=== PATIENT | male | born 1940 | race Caucasian/White ===

== ENCOUNTER → 2021-02-08 09:42 | Outpatient (BNVA) | payer MEDICARE, SELFPAY | PROVIDERS: PCP Family Medicine Adult Medicine; Visit Provider Urology | DX: N18.31 Chronic kidney disease, stage 3a (principal); C61 Malignant neoplasm of prostate | CPT/HCPCS: 81003; 84153; 84403 ==

== ENCOUNTER → 2021-03-21 14:08 | Outpatient (BNVA) | payer MEDICARE, SELFPAY | PROVIDERS: PCP Family Medicine Adult Medicine; Visit Provider Family Medicine Adult Medicine | DX: I10 Essential (primary) hypertension (principal); N18.31 Chronic kidney disease, stage 3a; E78.2 Mixed hyperlipidemia; E03.8 Other specified hypothyroidism | CPT/HCPCS: 80053; 80061; 82043; 84443; 85025 ==

== ENCOUNTER 2021-04-27 13:53 | Outpatient (CLI) | payer MEDICARE, SELFPAY ==
--- NOTE | 2021-04-27 14:15 | USCV_ITS ---
Maryan Teodoro Age: 80 Gender: M : 1940 Exam Date: 04/27/2021 14:29 Ordering Phys: Noe Nicole MD ([email or web address]) Technologist: Exam Location: [facility] [place]ication: dyspnea BP: 148 / 50 HR: 48 Rhythm: Sinus Technical Quality: Adequate MEASUREMENTS (Male / Female) Normal Values 2D ECHO LV Diastolic Diameter PLAX 4.8 cm 4.2 - 5.9 / 3.9 - 5.3 cm LV Systolic Diameter PLAX 3.0 cm IVS Diastolic Thickness 1.2 cm 0.6 - 1.0 / 0.6 - 0.9 cm IVS Systolic Thickness 1.4 cm LVPW Diastolic Thickness 1.1 cm 0.6 - 1.0 / 0.6 - 0.9 cm LVPW Systolic Thickness 1.8 cm LVOT Diameter 2.1 cm LV Ejection Fraction 2D Teich 68.3 % LV Ejection Fraction MOD 2C 56.6 % LV Ejection Fraction 2C AL 57.5 % LA Diameter 3.7 cm Aorta at Sinotubular Diameter 2.3 cm M-MODE Aortic Annulus Diameter 2.3 cm LA Ao Ratio MM 1.6 MV E Point Septal Separation 0.4 cm DOPPLER AV Peak Velocity 163.0 cm/s LVOT Peak Velocity 108.0 cm/s AV Area Cont Eq vti 2.2 cm squared AV Area Cont Eq pk 2.3 cm squared MV Area PHT 5.0 cm squared Mitral E to A Ratio 1.2 MV E' Velocity 60.0 cm/s Mitral E to MV E' Ratio 6.1 Mitral E to LV E' Lateral Ratio 5.2 Mitral E to LV E' Septal Ratio 7.6 TR Peak Velocity 268.0 cm/s TR Peak Gradient 28.7 mmHg TV Peak E Velocity 101.0 cm/s Right Atrial Pressure 3.0 mmHg Pulmonary Artery Systolic Pressu 31.7 mmHg PV Peak Velocity 117.0 cm/s RV Acceleration Time 0.1 s RV Ejection Time 0.4 s RV AcT/ET 0.2 FINDINGS Left Ventricle Normal left ventricular size and systolic function, EF 55 %. Mild left ventricular hypertrophy. No regional wall motion abnormalities. Right Ventricle The right ventricle is normal in size and function. Right Atrium The right atrium is normal in size. Left Atrium The left atrium is normal in size. Mitral Valve Thickened mitral valve. Moderate mitral valve regurgitation. Aortic Valve No gross abnormalities noted Tricuspid Valve Trace to mild tricuspid valve regurgitation. Pulmonic Valve No gross abnormalities noted Pericardium Normal pericardium without effusion. Aorta Normal ascending aorta dimension. CONCLUSIONS Normal left ventricular size and systolic function, EF 55 %. Mild left ventricular hypertrophy. No regional wall motion abnormalities. Thickened mitral valve. Moderate mitral valve regurgitation. Trace to mild tricuspid valve regurgitation. There is no pericardial effusion. There are no intracardiac masses. No previous study is available for comparison. Dr Noe Nicole MD [facility] (Electronically Signed) Final Date: 27 April 2021 17:32 S
== END 2021-04-27 13:54 | disposition home or self-care (01) ==
LOC: RAD 13:54
PROVIDERS: PCP Family Medicine Adult Medicine; Visit Provider Internal Medicine Cardiovascular Disease
DX: R06.00 Dyspnea, unspecified (principal); R01.1 Cardiac murmur, unspecified; I08.1 Rheumatic disorders of both mitral and tricuspid valves
CPT/HCPCS: 93306

== ENCOUNTER 2021-06-14 13:55 | Outpatient (CLI) | payer MEDICARE, SELFPAY ==
[2021-06-14 15:23] LABS: Creatinine Urine, Random 88 mg/dL (39-259); Microalbumin Random Urine 5 ug/dL (0-20)
[2021-06-14 15:25] LABS: Microalbum Creatinine Ratio Ur 57 mg/dL (0-20)
[2021-06-16 12:13] LABS: ANCA Screen NEGATIVE (NEGATIVE)
== END 2021-06-14 13:56 | disposition home or self-care (01) ==
LOC: LAB 14:04
PROVIDERS: PCP Family Medicine Adult Medicine; Visit Provider Internal Medicine Nephrology
DX: N18.32 Chronic kidney disease, stage 3b (principal)
CPT/HCPCS: 36415; 82044; 83516

== ENCOUNTER 2021-07-13 09:58 | Outpatient (CLI) | payer MEDICARE, SELFPAY ==
[2021-07-13 10:27] VITALS: BMI 24.1
--- NOTE | 2021-07-13 10:38 | NMCV_ITS ---
NM omar perf SPECT r/s* [id number] Teodoro Steinberg Age: 81 Gender: M : 1940 Exam Date: 07/13/2021 11:34 Ordering Phys: Noe Nicole MD ([email or web address]) Technologist: SAHIL Soliman Exam Location: [facility] Indications: SHORTNESS OF BREATH STRESS TEST [facility] IMAGE PROTOCOL Rest/Stress 1 Lexiscan Day Radiopharmaceutical Dose (mCi) Administration Site Administered by Rest: Tc-99m 11.0 IV SAHIL Soliman Sestamibi Stress:Tc-99m 33.0 IV SAHIL Soliman Sestamibi Rest: 13-Jul-2021 60 Discovery 630 Stress: 13-Jul-2021 30 Discovery 630 0.4mg Lexiscan. Images obtained in supine and prone position. SPECT RESULTS Technical Quality: Excellent Raw Data Analysis: Normal Image Corrections: No attenuation or motion correction applied Summed Stress Score: 3 Summed Rest Score: 0 Summed Difference Score: 3 PERFUSION FINDINGS Small area of decreased tracer uptake in the mid and apical inferior wall region with some reversibility FUNCTIONAL RESULTS (calculated via Gated SPECT) Stress Image LV EF (%): 87 Stress EDV (mL):91 TID: 0.86 Stress ESV (mL):12 FUNCTIONAL FINDINGS: Segmental wall motion analysis revealing no gross wall motion abnormal duties. IMPRESSIONS 1. Myocardial perfusion imaging revealing a small area of reversible defect in the inferior wall region, suggestive of myocardial scarring with ischemia in the distribution of the right coronary artery. 2. Normal LV ejection fraction of 87%. 3. LV wall motion analysis revealing no gross wall motion abnormalities. 4. Normal LV volume. No similar previous studies are available for comparison Dr Noe Nicole MD [facility] (Electronically Signed) Final Date: 13 Jul 2021 17:52 S
--- NOTE | 2021-07-13 10:38 | ECG_ITS ---
[facility] Test Date: 2021-07-13 Pat Name: Teodoro Steinberg Department: Room: Gender: Male Maritime Officer: Shayla Ruiz : 1940 Requested By: Noe Nicole Order Number: [id number] Cindy MD: Noe Nicole M.D. Interpretive Statements NAME OF STUDY: LEXISCAN SESTAMIBI STRESS TEST INDICATION: Sob, PROCEDURE: At the baseline, the EKG revealed sinus bradycardia with occasional PACs. The baseline blood pressure was 182/71 mm Hg with a heart rate of 57 beats/min. Lexiscan was infused over a period of 20 seconds. A total of 0.4 milligrams of Lexiscan was infused. The stress phase was continued for a total of 5 minutes. Heart rate at the end of the stress phase was 67 with a blood pressure 156/70. The EKG at the peak infusion revealed no significant changes. Sestamibi was injected 20 seconds after the Lexiscan infusion. Blood pressure at the end of the recovery phase was 178/74 with a heart rate of 62 per minute. CONCLUSION: 1. No significant EKG changes with the LexiScan infusion 2. No LexiScan induced chest pain or cardiac arrhythmia 3. Normal blood pressure and heart rate response 4. Sestamibi/sestamibi perfusion scan pending; see separate report. Electronically Signed On 07-15-2021 12:25:19 CDT by Noe Nicole M.D. [id number]
[2021-07-13] MEDS: regadenoson 0.4 Mg/5 ml Syringe IVP (12:03)
[2021-07-13 12:29] VITALS: BP 158/71; PULSE 63
== END 2021-07-13 09:59 | disposition home or self-care (01) ==
LOC: CDL 10:04
PROVIDERS: PCP Family Medicine Adult Medicine; Visit Provider Internal Medicine Cardiovascular Disease
DX: R06.02 Shortness of breath (principal)
CPT/HCPCS: 78452; 93017; A9500; J2785

== ENCOUNTER 2021-07-22 13:09 | Outpatient (CLI) | payer MEDICARE, SELFPAY ==
[2021-07-22 14:32] LABS: Albumin Level 4.2 g/dL (3.5-5.2); Anion Gap 14.5 (5-19); Blood Urea Nitrogen 28 mg/dL (8-23); Calcium 8.8 mg/dL (8.5-10.5); Carbon Dioxide 25 mmol/L (22-29); Chloride 104 mmol/L (98-107); Glucose 102 mg/dL (65-115); Phosphorus 3.4 mg/dL (2.5-4.5); Potassium 3.5 mmol/L (3.5-5.1); Sodium 140 mmol/L (136-145)
[2021-07-24 06:12] LABS: PROTEIN, TOTAL 6.3 g/dL (6.1-8.1)
[2021-07-26 14:18] LABS: KAPPA LIGHT CHAIN, FREE, SERUM 46.2 mg/L (3.3-19.4); KAPPA/LAMBDA LIGHT CHAINS FREE 1.48 (0.26-1.65); LAMBDA LIGHT CHAIN, FREE, SERU 31.3 mg/L (5.7-26.3)
[2021-07-26 16:19] LABS: ALBUMIN 3.8 g/dL (3.8-4.8); ALPHA 1 GLOBULIN 0.3 g/dL (0.2-0.3); ALPHA 2 GLOBULIN 0.7 g/dL (0.5-0.9); BETA 1 GLOBULIN 0.4 g/dL (0.4-0.6); BETA 2 GLOBULIN 0.3 g/dL (0.2-0.5); GAMMA GLOBULIN 0.8 g/dL (0.8-1.7)
== END 2021-07-22 13:10 | disposition home or self-care (01) ==
PROVIDERS: PCP Family Medicine Adult Medicine; Visit Provider Internal Medicine Nephrology
DX: N18.32 Chronic kidney disease, stage 3b (principal)
CPT/HCPCS: 80069; 83883; 84155; 84165

== ENCOUNTER → 2021-10-13 12:29 | Outpatient (BNVA) | payer MEDICARE, SELFPAY | PROVIDERS: PCP Family Medicine Adult Medicine; Visit Provider Urology | DX: N20.1 Calculus of ureter (principal); Z85.46 Personal history of malignant neoplasm of prostate; N39.41 Urge incontinence; N39.42 Incontinence without sensory awareness; G30.9 Alzheimer's disease, unspecified; F02.80 Dementia in other diseases classified elsewhere, unspecified severity, without behavioral disturbance, psychotic disturbance, mood disturbance, and anxiety; R39.9 Unspecified symptoms and signs involving the genitourinary system | CPT/HCPCS: 51741; 51798; 52000; 81003; 99214 ==

== ENCOUNTER → 2021-11-11 09:59 | Outpatient (BNVA) | payer MEDICARE, SELFPAY | PROVIDERS: PCP Family Medicine Adult Medicine; Visit Provider Internal Medicine Cardiovascular Disease | DX: I48.91 Unspecified atrial fibrillation (principal); Z85.46 Personal history of malignant neoplasm of prostate; E78.2 Mixed hyperlipidemia; I12.9 Hypertensive chronic kidney disease with stage 1 through stage 4 chronic kidney disease, or unspecified chronic kidney disease; N18.30 Chronic kidney disease, stage 3 unspecified; G30.9 Alzheimer's disease, unspecified; F02.80 Dementia in other diseases classified elsewhere, unspecified severity, without behavioral disturbance, psychotic disturbance, mood disturbance, and anxiety | CPT/HCPCS: 99213 ==

== ENCOUNTER 2021-11-23 14:15 | Outpatient (CLI) | payer MEDICARE, SELFPAY ==
[2021-11-23 15:19] LABS: Prostate Specific AG Urology 0.55 ng/mL (0-4)
== END 2021-11-23 14:16 | disposition home or self-care (01) ==
LOC: LAB 14:17
PROVIDERS: PCP Family Medicine Adult Medicine; Visit Provider Urology
DX: N39.41 Urge incontinence (principal); Z85.46 Personal history of malignant neoplasm of prostate
CPT/HCPCS: 36415; 84153

== ENCOUNTER → 2021-12-01 12:55 | Outpatient (BNVA) | payer MEDICARE, SELFPAY | PROVIDERS: PCP Family Medicine Adult Medicine; Visit Provider Urology | DX: N39.42 Incontinence without sensory awareness (principal); Z85.46 Personal history of malignant neoplasm of prostate; G30.9 Alzheimer's disease, unspecified; F02.80 Dementia in other diseases classified elsewhere, unspecified severity, without behavioral disturbance, psychotic disturbance, mood disturbance, and anxiety; Z98.890 Other specified postprocedural states | CPT/HCPCS: 51798; 81003; 99213 ==

== ENCOUNTER → 2022-03-14 08:24 | Outpatient (BNVA) | payer MEDICARE, SELFPAY | PROVIDERS: PCP Family Medicine Adult Medicine; Visit Provider Podiatrist Foot & Ankle Surgery | DX: L60.0 Ingrowing nail (principal); B35.1 Tinea unguium | CPT/HCPCS: 11750; 99204 ==

== ENCOUNTER → 2022-03-24 08:39 | Outpatient (BNVA) | payer MEDICARE, SELFPAY | PROVIDERS: PCP Family Medicine Adult Medicine; Visit Provider Podiatrist Foot & Ankle Surgery | DX: L60.0 Ingrowing nail (principal); B35.1 Tinea unguium; R60.9 Edema, unspecified | CPT/HCPCS: 11721 ==

== ENCOUNTER → 2022-05-11 11:14 | Outpatient (BNVA) | payer MEDICARE, SELFPAY | PROVIDERS: PCP Family Medicine Adult Medicine; Visit Provider Internal Medicine Cardiovascular Disease | DX: I48.91 Unspecified atrial fibrillation (principal); R53.82 Chronic fatigue, unspecified; I34.0 Nonrheumatic mitral (valve) insufficiency; E78.2 Mixed hyperlipidemia; E03.8 Other specified hypothyroidism; I12.9 Hypertensive chronic kidney disease with stage 1 through stage 4 chronic kidney disease, or unspecified chronic kidney disease; N18.31 Chronic kidney disease, stage 3a; Z79.01 Long term (current) use of anticoagulants | CPT/HCPCS: 99214 ==

== ENCOUNTER 2022-05-26 09:57 | Outpatient (CLI) | payer MEDICARE, SELFPAY ==
[2022-05-26 11:33] LABS: Creatinine Urine, Random 58 mg/dL (39-259); Microalbum Creatinine Ratio Ur 17 mg/dL (0-20); Microalbumin Random Urine 1 ug/dL (0-20)
[2022-05-29 10:21] LABS: KAPPA/LAMBDA LIGHT CHAINS FREE 1.38 (0.26-1.65); LAMBDA LIGHT CHAIN, FREE, SERU 40.5 mg/L (5.7-26.3)
[2022-05-29 15:04] LABS: ALBUMIN 3.6 g/dL (3.8-4.8); ALPHA 1 GLOBULIN 0.3 g/dL (0.2-0.3); ALPHA 2 GLOBULIN 0.7 g/dL (0.5-0.9); BETA 1 GLOBULIN 0.4 g/dL (0.4-0.6); BETA 2 GLOBULIN 0.3 g/dL (0.2-0.5); GAMMA GLOBULIN 0.8 g/dL (0.8-1.7)
[2022-05-30 00:11] LABS: ANCA Screen NEGATIVE (NEGATIVE)
== END 2022-05-26 09:58 | disposition home or self-care (01) ==
PROVIDERS: Urology; PCP Family Medicine Adult Medicine; Visit Provider Internal Medicine Nephrology
DX: N18.32 Chronic kidney disease, stage 3b (principal); Z12.5 Encounter for screening for malignant neoplasm of prostate
CPT/HCPCS: 36415; 82044; 83883; 84153; 84155; 84165; 86036

== ENCOUNTER 2022-06-02 13:38 | Outpatient (CLI) | payer MEDICARE, SELFPAY ==
[2022-06-02 14:28] LABS: Albumin Level 3.9 g/dL (3.5-5.2); Anion Gap 16.6 (5-19); Blood Urea Nitrogen 26 mg/dL (8-23); Calcium 8.6 mg/dL (8.5-10.5); Carbon Dioxide 23 mmol/L (22-29); Chloride 106 mmol/L (98-107); Glucose 86 mg/dL (65-115); Phosphorus 3.3 mg/dL (2.5-4.5); Potassium 3.6 mmol/L (3.5-5.1); Sodium 142 mmol/L (136-145)
[2022-06-02 14:52] LABS: Creatinine Urine, Random 65 mg/dL (39-259); Microalbum Creatinine Ratio Ur 15 mg/dL (0-20); Microalbumin Random Urine 1 ug/dL (0-20)
== END 2022-06-02 13:39 | disposition home or self-care (01) ==
PROVIDERS: PCP Family Medicine Adult Medicine; Visit Provider Internal Medicine Nephrology
DX: N18.32 Chronic kidney disease, stage 3b (principal)
CPT/HCPCS: 80069; 82044

== ENCOUNTER → 2022-06-12 08:39 | Outpatient (BNVA) | payer MEDICARE, SELFPAY | PROVIDERS: PCP Family Medicine Adult Medicine; Visit Provider Podiatrist Foot & Ankle Surgery | DX: I73.9 Peripheral vascular disease, unspecified (principal); G62.9 Polyneuropathy, unspecified; B35.1 Tinea unguium | CPT/HCPCS: 11721 ==

== ENCOUNTER → 2022-06-14 13:04 | Outpatient (BNVA) | payer MEDICARE, SELFPAY | PROVIDERS: PCP Family Medicine Adult Medicine; Referring Provider Family Medicine Adult Medicine; Visit Provider Psychiatry & Neurology Neurology | DX: G30.9 Alzheimer's disease, unspecified (principal); F02.80 Dementia in other diseases classified elsewhere, unspecified severity, without behavioral disturbance, psychotic disturbance, mood disturbance, and anxiety; N18.9 Chronic kidney disease, unspecified; I48.91 Unspecified atrial fibrillation; Z79.01 Long term (current) use of anticoagulants | CPT/HCPCS: 99203 ==

== ENCOUNTER → 2022-06-20 14:22 | Outpatient (BNVA) | payer MEDICARE, SELFPAY | PROVIDERS: PCP Family Medicine Adult Medicine; Referring Provider Dermatology; Visit Provider Orthopaedic Surgery | DX: M18.11 Unilateral primary osteoarthritis of first carpometacarpal joint, right hand (principal) | CPT/HCPCS: 20600; 73130; 99203 ==

== ENCOUNTER 2022-06-20 15:25 | Outpatient (CLI) | payer MEDICARE, SELFPAY | END 2022-06-20 15:26 | disposition home or self-care (01) | LOC: SPT 15:26 | PROVIDERS: PCP Family Medicine Adult Medicine; Visit Provider Orthopaedic Surgery | DX: M18.11 Unilateral primary osteoarthritis of first carpometacarpal joint, right hand (principal) | CPT/HCPCS: 97760; J0702; J3490; L3924 ==

== ENCOUNTER → 2022-07-04 09:25 | Outpatient (BNVA) | payer MEDICARE, SELFPAY | PROVIDERS: PCP Family Medicine Adult Medicine; Visit Provider Internal Medicine Cardiovascular Disease | DX: I48.91 Unspecified atrial fibrillation (principal) | CPT/HCPCS: 85610 ==

== ENCOUNTER → 2022-07-18 09:24 | Outpatient (BNVA) | payer MEDICARE, SELFPAY | PROVIDERS: PCP Family Medicine Adult Medicine; Visit Provider Internal Medicine Cardiovascular Disease | DX: I48.91 Unspecified atrial fibrillation (principal); N25.81 Secondary hyperparathyroidism of renal origin | CPT/HCPCS: 36415; 80076; 82306; 82607; 82746; 83735; 83921; 84439; 84443; 85025; 85610; 86780 ==

== ENCOUNTER → 2022-07-21 11:52 | Outpatient (BNVA) | payer MEDICARE, SELFPAY | PROVIDERS: PCP Family Medicine Adult Medicine; Visit Provider Internal Medicine Cardiovascular Disease | DX: I48.91 Unspecified atrial fibrillation (principal) | CPT/HCPCS: 85610 ==

== ENCOUNTER → 2022-07-25 11:33 | Outpatient (BNVA) | payer MEDICARE, SELFPAY | PROVIDERS: PCP Family Medicine Adult Medicine; Visit Provider Internal Medicine Cardiovascular Disease | DX: I48.91 Unspecified atrial fibrillation (principal) | CPT/HCPCS: 85610 ==

== ENCOUNTER → 2022-08-01 11:34 | Outpatient (BNVA) | payer MEDICARE, SELFPAY | PROVIDERS: PCP Family Medicine Adult Medicine; Visit Provider Internal Medicine Cardiovascular Disease | DX: I48.91 Unspecified atrial fibrillation (principal) | CPT/HCPCS: 85610 ==

== ENCOUNTER 2022-08-10 10:56 | Outpatient (CLI) | payer MEDICARE, SELFPAY ==
--- NOTE | 2022-08-10 11:00 | MR_ITS ---
WS: [id number] MRI HEAD WITHOUT CONTRAST TECHNIQUE: Sagittal T1, T2 axial, T2 axial FLAIR, axial and coronal T1 images, axial susceptibility w eighted imaging, axial diffusion weighted images, and coronal T2 images were obtained. CLINICAL INFORMATION: G30.9 - Alzheimer's disease, unspecified COMPARISON: None. FINDINGS: No evidence of restricted diffusion to suggest acute ischemia. Ventricular system and basal cisterns are patent. Mild small vessel changes. Moderate parenchymal volume loss. Normal posterior fossa. Norm al vascular flow voids at the skull base. No extra-axial fluid collections. No evidence of mass or ma ss effect. Paranasal sinuses are well aerated. Partial opacification the LEFT mastoid air cells. No hemosiderin on susceptibly weighted images. Normal optic chiasm and pituitary infundibulum. Advanc ed atrophy LEFT temporal lobes hippocampal formation. Moderate atrophy RIGHT temporal lobes hippocamp al formation. Normal visualized posterior nasopharynx and parapharyngeal fat. MR/MR head wo con* [id number] IMPRESSION: 1. No evidence of restricted usually to suggest acute ischemia. 2. Mild small vessel changes with moderate parenchymal volume loss worse in th e temporal and parietal lobes. Temporal parietal volume loss can be seen with A lzheimer's dementia in the appropriate clinical setting 3. Advanced atrophy LEFT mesial temporal lobe and hippocampal formation. Moder ate atrophy on the RIGHT. 4. No hemosiderin on susceptibly weighted images. 5. Partial opacification LEFT mastoid air cells.
--- NOTE | 2022-08-10 11:09 | USCV_ITS ---
Teodoro Steinberg Age: 82 Gender: M : 1940 Exam Date: 08/10/2022 11:56 Ordering Phys: Shane Coley MD Technologist: GASPER [place] [facility] [place]ication: CAD ALZHEIMER'S Risk Factors: Previous Vascular Surgery: Right Brachial BP: / Left Brachial BP: / Right Left Velocity (cm/s) Spectral Plaque Velocity (cm/s) Spectral Plaque Syst/Diast Broadening Syst/Diast Broadening 83.80/ 24.30 Prox CCA 102.50/ 18.80 87.10/ 18.70 Mid CCA 97.40 / 20.50 57.30/ 17.60 Distal CCA 76.30 / 16.70 68.40/ 13.70 Prox ICA 57.30 / 12.50 68.30/ 17.20 Mid ICA 66.30 / 17.00 94.00/ 23.90 Distal ICA 67.30 / 22.10 91.90 ECA 88.10 1.08 ICA/CCA 0.66 Antegrade Vertebral Antegrade 70.10/ 13.70 cm/s 43.50/ 9.30 cm/s Tri Subclavian Tri 90.60 97.00 FINDINGS Comparison: none available. No significant elevation of systolic or diastolic velocities. Waveforms are normal. Mild carotid athererosclerosis identified. Antegrade vertebral arteries. CONCLUSIONS Bilateral ICA stenosis less than 50%. Mild carotid atherosclerosis.s Dr. Bertha Vazquez DO (Electronically Signed) Final Date: 10 August 2022 12:38 S
== END 2022-08-10 10:57 | disposition home or self-care (01) ==
PROVIDERS: PCP Family Medicine Adult Medicine; Visit Provider Psychiatry & Neurology Neurology
DX: G45.1 Carotid artery syndrome (hemispheric) (principal); F02.80 Dementia in other diseases classified elsewhere, unspecified severity, without behavioral disturbance, psychotic disturbance, mood disturbance, and anxiety; G30.9 Alzheimer's disease, unspecified
CPT/HCPCS: 70551; 93880; 99203

== ENCOUNTER 2022-08-11 12:00 | Outpatient (CLI) | payer MEDICARE, SELFPAY ==
--- NOTE | 2022-08-10 12:00 | USCV_ITS ---
Teodoro Steinberg Age: 82 Gender: M : 1940 Exam Date: 08/10/2022 11:56 Ordering Phys: Shane Coley MD Technologist: GASPER Exam Location: [facility] [place] Indication: CAD ALZHEIMER'S Risk Factors: Previous Vascular Surgery: Right Brachial BP: / Left Brachial BP: / Right Left Velocity (cm/s) Spectral Plaque Velocity (cm/s) Spectral Plaque Syst/Diast Broadening Syst/Diast Broadening 83.80/ 24.30 Prox CCA 102.50/ 18.80 87.10/ 18.70 Mid CCA 97.40 / 20.50 57.30/ 17.60 Distal CCA 76.30 / 16.70 68.40/ 13.70 Prox ICA 57.30 / 12.50 68.30/ 17.20 Mid ICA 66.30 / 17.00 94.00/ 23.90 Distal ICA 67.30 / 22.10 91.90 ECA 88.10 1.08 ICA/CCA 0.66 Antegrade Vertebral Antegrade 70.10/ 13.70 cm/s 43.50/ 9.30 cm/s Tri Subclavian Tri 90.60 97.00 FINDINGS Comparison: none available. No significant elevation of systolic or diastolic velocities. Waveforms are normal. Mild carotid athererosclerosis identified. Antegrade vertebral arteries. CONCLUSIONS Bilateral ICA stenosis less than 50%. Mild carotid atherosclerosis.s Dr. Bertha Vazquez DO (Electronically Signed) Final Date: 10 August 2022 12:38 S
== END 2022-08-11 12:01 | disposition home or self-care (01) ==
LOC: RAD 08-22 12:15
PROVIDERS: PCP Family Medicine Adult Medicine; Visit Provider Psychiatry & Neurology Neurology
DX: I65.23 Occlusion and stenosis of bilateral carotid arteries (principal)
CPT/HCPCS: 93880

== ENCOUNTER → 2022-08-21 12:53 | Outpatient (BNVA) | payer MEDICARE, SELFPAY | PROVIDERS: PCP Family Medicine Adult Medicine; Visit Provider Psychiatry & Neurology Neurology | DX: G30.9 Alzheimer's disease, unspecified (principal); F02.80 Dementia in other diseases classified elsewhere, unspecified severity, without behavioral disturbance, psychotic disturbance, mood disturbance, and anxiety; I48.91 Unspecified atrial fibrillation; Z79.01 Long term (current) use of anticoagulants; R43.8 Other disturbances of smell and taste; R00.1 Bradycardia, unspecified; H54.7 Unspecified visual loss | CPT/HCPCS: 36415; 86592; 86780; 99212 ==

== ENCOUNTER → 2022-09-05 11:55 | Outpatient (BNVA) | payer MEDICARE, SELFPAY | PROVIDERS: PCP Family Medicine Adult Medicine; Visit Provider Internal Medicine Cardiovascular Disease | DX: I48.91 Unspecified atrial fibrillation (principal); I12.9 Hypertensive chronic kidney disease with stage 1 through stage 4 chronic kidney disease, or unspecified chronic kidney disease; I73.9 Peripheral vascular disease, unspecified; N18.32 Chronic kidney disease, stage 3b; Z79.01 Long term (current) use of anticoagulants; I34.0 Nonrheumatic mitral (valve) insufficiency | CPT/HCPCS: 36415; 80048; 83880; 85610 ==

== ENCOUNTER → 2022-09-18 10:08 | Outpatient (BNVA) | payer MEDICARE, SELFPAY | PROVIDERS: PCP Family Medicine Adult Medicine; Visit Provider Podiatrist Foot & Ankle Surgery | DX: B35.1 Tinea unguium (principal); I73.9 Peripheral vascular disease, unspecified; G62.9 Polyneuropathy, unspecified | CPT/HCPCS: 11721 ==

== ENCOUNTER → 2022-11-22 14:29 | Outpatient (BNVA) | payer MEDICARE, SELFPAY | PROVIDERS: PCP Family Medicine Adult Medicine; Visit Provider Psychiatry & Neurology Neurology | DX: R41.3 Other amnesia (principal); F02.80 Dementia in other diseases classified elsewhere, unspecified severity, without behavioral disturbance, psychotic disturbance, mood disturbance, and anxiety; G30.9 Alzheimer's disease, unspecified | CPT/HCPCS: 0346U; 36415; 82542; 99212 ==

== ENCOUNTER → 2022-11-24 09:27 | Outpatient (BNVA) | payer MEDICARE, SELFPAY | PROVIDERS: PCP Family Medicine Adult Medicine; Visit Provider Podiatrist Foot & Ankle Surgery | DX: B35.1 Tinea unguium (principal); I73.9 Peripheral vascular disease, unspecified; G62.9 Polyneuropathy, unspecified | CPT/HCPCS: 11721 ==

== ENCOUNTER → 2022-11-30 11:11 | Outpatient (BNVA) | payer MEDICARE, SELFPAY | PROVIDERS: PCP Family Medicine Adult Medicine; Visit Provider Internal Medicine Cardiovascular Disease | DX: I48.91 Unspecified atrial fibrillation (principal); Z79.01 Long term (current) use of anticoagulants; E78.2 Mixed hyperlipidemia; R06.02 Shortness of breath; G30.9 Alzheimer's disease, unspecified; F02.80 Dementia in other diseases classified elsewhere, unspecified severity, without behavioral disturbance, psychotic disturbance, mood disturbance, and anxiety; I12.9 Hypertensive chronic kidney disease with stage 1 through stage 4 chronic kidney disease, or unspecified chronic kidney disease; N18.32 Chronic kidney disease, stage 3b; I34.0 Nonrheumatic mitral (valve) insufficiency | CPT/HCPCS: 36415; 80048; 83880; 99214 ==

== ENCOUNTER 2022-12-15 10:30 | Outpatient (CLI) | payer MEDICARE, SELFPAY ==
[2022-12-15 11:05] LABS: Basophils # 0.1 10^3/uL (0.0-0.1); Basophils % 0.6 %; Eosinophils # 0.4 10^3/uL (0.0-0.8); Eosinophils % 3.7 %; Hematocrit 32.4 % (37-53); Lymphocytes % 20.1 %; Mean Corpuscular HGB Conc 32.1 g/dL (30-55); Mean Corpuscular Hemoglobin 31.6 pg (27-33); Mean Corpuscular Volume 98.5 fl (82-101); Mean Platelet Volume 11.1 fL (7.4-10.4); Monocytes # 0.8 10^3/uL (0.2-0.9); Monocytes % 7.7 %; Neutrophils # 6.58 10^3/uL (1.8-7.7); Neutrophils % 67.6 %; Nucleated Red Blood Cells % 0 %; Platelet Count 232 10^3/cmm (157-399); Red Blood Count 3.29 10^6/uL (3.85-5.65); Red Cell Distribution Width 13.2 % (12.1-15.1); White Blood Count 9.74 10^3/uL (3.29-11.43)
[2022-12-15 11:40] LABS: Calcium 8.5 mg/dL (8.5-10.5); Parathyroid Hormone 149.6 pg/mL (15-65)
[2022-12-15 11:50] LABS: 25 Hydroxy Vitamin D 42 ng/mL (30-100); Albumin Level 3.8 g/dL (3.5-5.2); Blood Urea Nitrogen 35 mg/dL (8-23); Calcium 8.5 mg/dL (8.5-10.5); Carbon Dioxide 23 mmol/L (22-29); Chloride 106 mmol/L (98-107); Glucose 90 mg/dL (65-115); Phosphorus 3.3 mg/dL (2.5-4.5); Sodium 142 mmol/L (136-145)
[2022-12-15 13:31] LABS: Creatinine Urine, Random 89 mg/dL (39-259); Microalbum Creatinine Ratio Ur 11 mg/dL (0-20); Microalbumin Random Urine 1 ug/dL (0-20)
== END 2022-12-15 10:31 | disposition home or self-care (01) ==
PROVIDERS: PCP Family Medicine Adult Medicine; Visit Provider Internal Medicine Nephrology
DX: N18.32 Chronic kidney disease, stage 3b (principal)
CPT/HCPCS: 36415; 80069; 82044; 82306; 82310; 83970; 85025

== ENCOUNTER 2023-01-08 10:51 | Outpatient (CLI) | payer MEDICARE, SELFPAY ==
--- NOTE | 2023-01-08 11:34 | US_ITS ---
WS: [id number] RENAL ULTRASOUND HISTORY: ACUTE INJURY OF KIDNEY/STAGE 3B CHRONIC KIDNEY DZ COMPARISON: None available. TECHNIQUE: 2-D and color Doppler imaging of the kidney submitted. Right kidney: 9.0 cm x 3.5 cm x 4.3 cm. Cortex: 0.9 cm Low normal size kidney with increased echogenicity. No mass or obstruction. Mild cortical thinning. Left kidney: 9.7 cm x 4.5 cm x 5.5 cm. Cortex: 1.2 cm Mild increased echogenicity. No obstruction. Aorta: Normal. Urinary Bladder: Well-distended bladder. Mild prostate enlargement and heterogeneity. IMPRESSION: 1. No hydronephrosis. 2. Mild atrophy RIGHT kidney. 3. Mild bilateral chronic medical renal disease.
[2023-01-08 11:51] LABS: Anion Gap 16.6 (5-19); Blood Urea Nitrogen 30 mg/dL (8-23); Calcium 8.4 mg/dL (8.5-10.5); Carbon Dioxide 22 mmol/L (22-29); Chloride 105 mmol/L (98-107); Glucose 94 mg/dL (65-115); Potassium 3.6 mmol/L (3.5-5.1); Sodium 140 mmol/L (136-145)
[2023-01-08 12:05] LABS: Add Urine Culture? No; Bacteria Urine TRACE /hpf; Bilirubin Urine Neg (Negative); Blood Urine Neg (Negative); Glucose Urine UA Norm (Normal); Ketones Urine Negative (Negative); Leukocyte Esterase Urine Negative (Negative); Nitrate Urine Negative (Negative); Protein Urine Neg (Negative); RBC Urine 0-4 /hpf (0-2); Squamous Epithelial Cell Urine 0-4 /hpf (0-5); Urine Appearance Clear (CLEAR); Urine Color Yellow (Yellow); Urobilinogen Urine Norm (Negative); WBC Urine 0-4 /hpf (0-5); pH Urine 5 (5-7)
[2023-01-08 12:17] LABS: Creatinine Urine, Random 90 mg/dL (39-259); Microalbum Creatinine Ratio Ur 11 mg/dL (0-20); Microalbumin Random Urine 1 ug/dL (0-20)
== END 2023-01-08 10:52 | disposition home or self-care (01) ==
LOC: RAD 10:51
PROVIDERS: PCP Family Medicine Adult Medicine; Visit Provider Internal Medicine Nephrology
DX: N17.9 Acute kidney failure, unspecified (principal); N18.32 Chronic kidney disease, stage 3b
CPT/HCPCS: 36415; 76770; 80069; 81001; 82044

== ENCOUNTER → 2023-02-12 15:22 | Outpatient (BNVA) | payer MEDICARE, SELFPAY | PROVIDERS: PCP Family Medicine Adult Medicine; Visit Provider Podiatrist Foot & Ankle Surgery | DX: B35.1 Tinea unguium (principal); I73.9 Peripheral vascular disease, unspecified; G62.9 Polyneuropathy, unspecified; I12.9 Hypertensive chronic kidney disease with stage 1 through stage 4 chronic kidney disease, or unspecified chronic kidney disease; N18.32 Chronic kidney disease, stage 3b | CPT/HCPCS: 11721 ==

== ENCOUNTER 2023-04-19 11:58 | Outpatient (CLI) | payer MEDICARE, SELFPAY ==
[2023-04-19 13:00] LABS: Basophils # 0.1 10^3/uL (0.0-0.1); Basophils % 0.5 %; Eosinophils # 0.2 10^3/uL (0.0-0.8); Hematocrit 31.4 % (37-53); Lymphocytes # 1.9 10^3/uL (0.8-4.8); Mean Corpuscular HGB Conc 32.5 g/dL (30-55); Mean Corpuscular Hemoglobin 31.5 pg (27-33); Mean Corpuscular Volume 96.9 fl (82-101); Mean Platelet Volume 12.1 fL (7.4-10.4); Monocytes # 0.6 10^3/uL (0.2-0.9); Monocytes % 6.7 %; Neutrophils # 6.67 10^3/uL (1.8-7.7); Neutrophils % 70.5 %; Nucleated Red Blood Cells % 0 %; Platelet Count 218 10^3/cmm (157-399); Red Blood Count 3.24 10^6/uL (3.85-5.65); Red Cell Distribution Width 13.4 % (12.1-15.1); White Blood Count 9.46 10^3/uL (3.29-11.43)
[2023-04-19 13:20] LABS: Albumin Level 3.6 g/dL (3.5-5.2); Anion Gap 13.4 (5-19); Blood Urea Nitrogen 21 mg/dL (8-23); Calcium 7.9 mg/dL (8.5-10.5); Carbon Dioxide 22 mmol/L (22-29); Chloride 106 mmol/L (98-107); Glucose 78 mg/dL (65-115); Potassium 3.4 mmol/L (3.5-5.1); Sodium 138 mmol/L (136-145)
[2023-04-19 13:28] LABS: Calcium 7.9 mg/dL (8.5-10.5)
[2023-04-19 13:35] LABS: Parathyroid Hormone 130.4 pg/mL (15-65)
[2023-04-19 13:36] LABS: 25 Hydroxy Vitamin D 27 ng/mL (30-100)
== END 2023-04-19 11:59 | disposition home or self-care (01) ==
LOC: LAB 12:00
PROVIDERS: PCP Family Medicine Adult Medicine; Visit Provider Internal Medicine Nephrology
DX: N18.32 Chronic kidney disease, stage 3b (principal)
CPT/HCPCS: 36415; 80069; 82306; 82310; 83970; 85025

== ENCOUNTER → 2023-04-30 13:24 | Outpatient (BNVA) | payer MEDICARE, SELFPAY | PROVIDERS: PCP Family Medicine Adult Medicine; Visit Provider Podiatrist Foot & Ankle Surgery | DX: B35.1 Tinea unguium (principal); I73.9 Peripheral vascular disease, unspecified; G62.9 Polyneuropathy, unspecified; I12.9 Hypertensive chronic kidney disease with stage 1 through stage 4 chronic kidney disease, or unspecified chronic kidney disease; N18.32 Chronic kidney disease, stage 3b | CPT/HCPCS: 11721 ==

== ENCOUNTER → 2023-07-09 10:04 | Outpatient (BNVA) | payer MEDICARE, SELFPAY | PROVIDERS: PCP Family Medicine Adult Medicine; Visit Provider Podiatrist Foot & Ankle Surgery | DX: B35.1 Tinea unguium (principal); I73.9 Peripheral vascular disease, unspecified; G62.9 Polyneuropathy, unspecified; I12.9 Hypertensive chronic kidney disease with stage 1 through stage 4 chronic kidney disease, or unspecified chronic kidney disease; N18.32 Chronic kidney disease, stage 3b | CPT/HCPCS: 11721 ==

== ENCOUNTER → 2023-09-06 10:15 | Outpatient (BNVA) | payer MEDICARE, SELFPAY | PROVIDERS: PCP Family Medicine Adult Medicine; Visit Provider Internal Medicine Cardiovascular Disease | DX: I48.91 Unspecified atrial fibrillation (principal); I73.9 Peripheral vascular disease, unspecified; E78.5 Hyperlipidemia, unspecified; Z79.899 Other long term (current) drug therapy; I12.9 Hypertensive chronic kidney disease with stage 1 through stage 4 chronic kidney disease, or unspecified chronic kidney disease; N18.32 Chronic kidney disease, stage 3b; I34.0 Nonrheumatic mitral (valve) insufficiency; E78.2 Mixed hyperlipidemia; M79.89 Other specified soft tissue disorders | CPT/HCPCS: 99214 ==

== ENCOUNTER → 2023-09-10 10:16 | Outpatient (BNVA) | payer MEDICARE, SELFPAY | PROVIDERS: PCP Family Medicine Adult Medicine; Visit Provider Podiatrist Foot & Ankle Surgery | DX: B35.1 Tinea unguium (principal); I73.9 Peripheral vascular disease, unspecified; G62.9 Polyneuropathy, unspecified; I12.9 Hypertensive chronic kidney disease with stage 1 through stage 4 chronic kidney disease, or unspecified chronic kidney disease; N18.32 Chronic kidney disease, stage 3b | CPT/HCPCS: 11721 ==

== ENCOUNTER → 2023-09-12 15:07 | Outpatient (BNVA) | payer MEDICARE, SELFPAY | PROVIDERS: PCP Family Medicine Adult Medicine; Visit Provider Family Medicine Adult Medicine | DX: I10 Essential (primary) hypertension (principal); D64.9 Anemia, unspecified; E78.2 Mixed hyperlipidemia; N40.1 Benign prostatic hyperplasia with lower urinary tract symptoms; I12.9 Hypertensive chronic kidney disease with stage 1 through stage 4 chronic kidney disease, or unspecified chronic kidney disease; N18.32 Chronic kidney disease, stage 3b; Z85.46 Personal history of malignant neoplasm of prostate; Z79.899 Other long term (current) drug therapy; N18.9 Chronic kidney disease, unspecified | CPT/HCPCS: 80053; 84153; 84443; 85025 ==

== ENCOUNTER → 2023-09-20 11:43 | Outpatient (BNVA) | payer MEDICARE, SELFPAY | PROVIDERS: PCP Family Medicine Adult Medicine; Visit Provider Psychiatry & Neurology Neurology | DX: R41.3 Other amnesia (principal) | CPT/HCPCS: 99212 ==

== ENCOUNTER 2023-10-17 12:11 | Outpatient (CLI) | payer MEDICARE, SELFPAY ==
[2023-10-17 12:51] LABS: Basophils # 0.1 10^3/uL (0.0-0.1); Basophils % 0.6 %; Eosinophils # 0.1 10^3/uL (0.0-0.8); Eosinophils % 1.6 %; Hematocrit 34.4 % (37-53); Lymphocytes # 1.9 10^3/uL (0.8-4.8); Lymphocytes % 21.3 %; Mean Corpuscular HGB Conc 32.3 g/dL (30-55); Mean Corpuscular Hemoglobin 30.9 pg (27-33); Mean Corpuscular Volume 95.8 fl (82-101); Mean Platelet Volume 11.1 fL (7.4-10.4); Monocytes # 0.6 10^3/uL (0.2-0.9); Monocytes % 6.9 %; Neutrophils # 6.25 10^3/uL (1.8-7.7); Neutrophils % 69.4 %; Nucleated Red Blood Cells % 0 %; Platelet Count 222 10^3/cmm (157-399); Red Blood Count 3.59 10^6/uL (3.85-5.65); Red Cell Distribution Width 13.3 % (12.1-15.1)
[2023-10-17 13:15] LABS: Calcium 8.4 mg/dL (8.5-10.5)
[2023-10-17 13:16] LABS: Albumin Level 3.8 g/dL (3.5-5.2); Anion Gap 16.7 (5-19); Blood Urea Nitrogen 29 mg/dL (8-23); Calcium 8.2 mg/dL (8.5-10.5); Carbon Dioxide 23 mmol/L (22-29); Chloride 108 mmol/L (98-107); Glucose 106 mg/dL (65-115); Phosphorus 3.5 mg/dL (2.5-4.5); Potassium 3.7 mmol/L (3.5-5.1); Sodium 144 mmol/L (136-145)
[2023-10-17 13:28] LABS: Creatinine Urine, Random 116 mg/dL (39-259); Microalbum Creatinine Ratio Ur 69 mg/dL (0-20); Microalbumin Random Urine 8 ug/dL (0-20)
== END 2023-10-17 12:12 | disposition home or self-care (01) ==
PROVIDERS: Absent Provider Registered Nurse; PCP Family Medicine Adult Medicine; Visit Provider Registered Nurse
DX: N18.32 Chronic kidney disease, stage 3b (principal)
CPT/HCPCS: 36415; 80069; 82044; 82310; 83970; 85025

== ENCOUNTER → 2023-10-22 09:20 | Outpatient (BNVA) | payer MEDICARE, SELFPAY | PROVIDERS: PCP Family Medicine Adult Medicine; Visit Provider Nurse Practitioner Family | DX: I21.09 ST elevation (STEMI) myocardial infarction involving other coronary artery of anterior wall (principal); I48.91 Unspecified atrial fibrillation; R94.31 Abnormal electrocardiogram [ECG] [EKG] | CPT/HCPCS: 93005; 99213 ==

== ENCOUNTER → 2024-01-14 15:40 | Outpatient (BNVA) | payer MEDICARE, SELFPAY | PROVIDERS: PCP Family Medicine Adult Medicine; Visit Provider Podiatrist Foot & Ankle Surgery | DX: B35.1 Tinea unguium (principal); I73.9 Peripheral vascular disease, unspecified; G62.9 Polyneuropathy, unspecified; I12.9 Hypertensive chronic kidney disease with stage 1 through stage 4 chronic kidney disease, or unspecified chronic kidney disease; N18.32 Chronic kidney disease, stage 3b | CPT/HCPCS: 11721 ==

== ENCOUNTER → 2024-04-24 11:20 | Outpatient (BNVA) | payer MEDICARE, SELFPAY | PROVIDERS: PCP Family Medicine Adult Medicine; Visit Provider Podiatrist Foot & Ankle Surgery | DX: I73.9 Peripheral vascular disease, unspecified (principal); B35.1 Tinea unguium; G62.9 Polyneuropathy, unspecified | CPT/HCPCS: 11721 ==

== ENCOUNTER 2024-04-25 11:09 | Outpatient (CLI) | payer MEDICARE, SELFPAY ==
[2024-04-25 11:46] LABS: Basophils # 0.1 10^3/uL (0.0-0.1); Basophils % 0.6 %; Eosinophils # 0.1 10^3/uL (0.0-0.8); Eosinophils % 1.4 %; Hematocrit 30.7 % (37-53); Lymphocytes # 1.6 10^3/uL (0.8-4.8); Lymphocytes % 15.7 %; Mean Corpuscular HGB Conc 32.9 g/dL (30-55); Mean Corpuscular Hemoglobin 31.7 pg (27-33); Mean Corpuscular Volume 96.2 fl (82-101); Mean Platelet Volume 11.1 fL (7.4-10.4); Monocytes # 0.6 10^3/uL (0.2-0.9); Monocytes % 5.7 %; Neutrophils # 7.71 10^3/uL (1.8-7.7); Neutrophils % 76.2 %; Nucleated Red Blood Cells % 0 %; Platelet Count 206 10^3/cmm (157-399); Red Blood Count 3.19 10^6/uL (3.85-5.65); Red Cell Distribution Width 13.2 % (12.1-15.1); White Blood Count 10.12 10^3/uL (3.29-11.43)
[2024-04-25 12:20] LABS: Albumin Level 3.8 g/dL (3.5-5.2); Anion Gap 14.7 (5-19); Blood Urea Nitrogen 24 mg/dL (8-23); Calcium 8.5 mg/dL (8.5-10.5); Carbon Dioxide 23 mmol/L (22-29); Chloride 103 mmol/L (98-107); Glucose 101 mg/dL (65-115); Phosphorus 3.1 mg/dL (2.5-4.5); Potassium 3.7 mmol/L (3.5-5.1); Sodium 137 mmol/L (136-145)
[2024-04-25 12:28] LABS: Calcium 8.4 mg/dL (8.5-10.5)
[2024-04-25 12:33] LABS: Parathyroid Hormone 77.6 pg/mL (15-65)
[2024-04-25 12:56] LABS: 25 Hydroxy Vitamin D 46 ng/mL (30-100); Creatinine Urine, Random 80 mg/dL (39-259); Microalbum Creatinine Ratio Ur 63 mg/dL (0-20); Microalbumin Random Urine 5 ug/dL (0-20)
== END 2024-04-25 11:10 | disposition home or self-care (01) ==
PROVIDERS: PCP Family Medicine Adult Medicine; Visit Provider Registered Nurse
DX: N18.32 Chronic kidney disease, stage 3b (principal); E55.9 Vitamin D deficiency, unspecified
CPT/HCPCS: 36415; 80069; 82044; 82306; 82310; 83970; 85025

== ENCOUNTER → 2024-06-30 09:45 | Outpatient (BNVA) | payer MEDICARE, SELFPAY | PROVIDERS: PCP Family Medicine Adult Medicine; Visit Provider Internal Medicine Cardiovascular Disease | DX: I48.91 Unspecified atrial fibrillation (principal); Z79.01 Long term (current) use of anticoagulants; I73.9 Peripheral vascular disease, unspecified; E78.2 Mixed hyperlipidemia; I12.9 Hypertensive chronic kidney disease with stage 1 through stage 4 chronic kidney disease, or unspecified chronic kidney disease; N18.32 Chronic kidney disease, stage 3b; I34.0 Nonrheumatic mitral (valve) insufficiency; M79.89 Other specified soft tissue disorders | CPT/HCPCS: 99214 ==

== ENCOUNTER → 2024-07-07 15:03 | Outpatient (BNVA) | payer MEDICARE, SELFPAY | PROVIDERS: PCP Family Medicine; Visit Provider Family Medicine | DX: K21.9 Gastro-esophageal reflux disease without esophagitis (principal); E03.9 Hypothyroidism, unspecified; I10 Essential (primary) hypertension; N39.41 Urge incontinence; N40.1 Benign prostatic hyperplasia with lower urinary tract symptoms; I48.91 Unspecified atrial fibrillation; E78.2 Mixed hyperlipidemia; N39.42 Incontinence without sensory awareness; G30.9 Alzheimer's disease, unspecified; F02.80 Dementia in other diseases classified elsewhere, unspecified severity, without behavioral disturbance, psychotic disturbance, mood disturbance, and anxiety; E03.8 Other specified hypothyroidism; J30.2 Other seasonal allergic rhinitis; N18.31 Chronic kidney disease, stage 3a | CPT/HCPCS: 80053; 80061; 85025 ==

== ENCOUNTER → 2024-07-15 11:11 | Outpatient (BNVA) | payer MEDICARE, SELFPAY | PROVIDERS: PCP Family Medicine; Visit Provider Podiatrist Foot & Ankle Surgery | DX: I73.9 Peripheral vascular disease, unspecified (principal); B35.1 Tinea unguium; G62.9 Polyneuropathy, unspecified | CPT/HCPCS: 11721 ==

== ENCOUNTER → 2024-07-22 12:35 | Outpatient (BNVA) | payer MEDICARE, SELFPAY | PROVIDERS: PCP Family Medicine Adult Medicine; Visit Provider Psychiatry & Neurology Neurology | DX: G30.9 Alzheimer's disease, unspecified (principal); F02.80 Dementia in other diseases classified elsewhere, unspecified severity, without behavioral disturbance, psychotic disturbance, mood disturbance, and anxiety; R41.3 Other amnesia | CPT/HCPCS: 36415; 83520; 99213 ==

== ENCOUNTER → 2024-10-13 15:59 | Outpatient (BNVA) | payer MEDICARE, SELFPAY | PROVIDERS: PCP Family Medicine; Visit Provider Family Medicine | DX: I73.9 Peripheral vascular disease, unspecified (principal) | CPT/HCPCS: 80053; 84439; 84443; 85025 ==

== ENCOUNTER 2024-10-15 09:49 | Emergency (ER) | payer MEDICARE, SELFPAY ==
--- NOTE | 2024-10-15 09:51 | ECG_ITS ---
[facility] Test Date: 2024-10-15 Pat Name: Teodoro Steinberg Department: Room: Gender: Male Help Desk Operator: : 1940 Requested By: Evelio Vitale Order Number: [id number] Cindy MD: Parveen Winter M.D. Measurements Intervals Salters Rate: 45 P: 0 UT: 0 QRS: 40 QRSD: 102 T: 42 QT: 488 QTc: 426 Interpretive Statements ATRIAL FIBRILLATION WITH SLOW VENTRICULAR RESPONSE LOW QRS VOLTAGE [QRS DEFLECTION < 0.5/1.0 mV IN LIMB/CHEST LEADS] POSSIBLE ANTERIOR MYOCARDIAL INFARCTION , PROBABLY OLD [30 ms Q WAVE IN V3/V4, OR R < 0.2 mV IN V4] Compared to ECG 10/22/2023 09:28:49 No significant changes Electronically Signed On 10-18-2024 08:53:09 CDT by Parveen Winter M.D. [id number] [id number]
--- OUTSIDE RECORDS SUMMARY | 2024-10-15 10:06 | XMS_ITS | Encounter Summary ---
Author Organization [facility] [facility] Address [address] [facility] [address] [place] [address] Phone Care Team Providers Care Safety And Health Consultant Name Role Phone Jose Short Primary Care Provider [phone] Encounter Details Date Type Department Care Team (Late st Contact Info) Description 03/16/2021 Orders Only [place] [facility] [address] [facility] [address] [place] [address] Stage 3 chronic kidney disease, not otherwise specified (HCC) Social History Tobacco Use Types Packs/Day Years Used Date Smoking Tobacco: Never Assessed Sex and Gender Information Value Date Recorded Sex Assigned at Not on file Legal Sex Male 11:04 AM EST Gender Identity Not on file Sexual Orientation Not on file documented as of this encounter Plan of Treatment Upcoming Encounters Date Type Department Care Team (Late st Contact Info) Description 11/04/2024 2:30 PM CDT Office Visit [place] [facility] [address] [place] [address] Juani Grant NP [address] [facility] [address] [place] [address] documented as of this encounter Visit Diagnoses Diagnosis Stage 3 chronic kidney disease, not otherwise specified (HCC) documented in this encounter Care Teams Safety And Health Consultant Relationship Specialty Start Date End Date Jose Short [address] [place] [address] PCP - General 10/15/24 documented as of this encounter
--- OUTSIDE RECORDS SUMMARY | 2024-10-15 10:07 | XMS_ITS | Encounter Summary ---
Author Organization [facility] Address [address] [place] [address] Phone Care Team Providers Care Bow Maker Name Role Phone Jose Short Primary Care Provider [phone] Encounter Details Date Type Department Care Team (Late st Contact Info) Description 10/15/2024 Telephone [facility] [address] [place] [address] Amirah Valerio [address] [place] [address] Social History Tobacco Use Types Packs/Day Years Used Date Smoking Tobacco: Never Smokeless Tobacco: Never Alcohol Use Standard Drinks/Week Comments Not Currently 0 (1 standard drink = 0.6 oz pur e alcohol) Sex and Gender Information Value Date Recorded Sex Assigned at Not on file Legal Sex Male 11:04 AM EST Gender Identity Not on file Sexual Orientation Not on file documented as of this encounter Miscellaneous Notes * Telephone Encounter - Amirah Valerio - 10/15/2024 9:16 AM CDT Pt's called in RE; kidney function. States she was advised by Dr Short to take pt to ER for recent lab values of GFR 14 and creatinine of 4.1. Pt is going into LTC 10/28 and she just wanted tomake sure that is what we would advise also. Informed that if he is sleeping all the time and not eating he needs to be evaluated. Verbalized understanding. Please let me know if you would like anythi ng different. documented in this encounter Plan of Treatment Upcoming Encounters Date Type Department Care Team (Late st Contact Info) Description 11/04/2024 2:30 PM CDT Office Visit [facility] [address] [place] [address] Juani Grant NP [address] [place] [id number] documented as of this encounter Visit Diagnoses Not on filedocumented in this encounter Care Teams Bow Maker Relationship Specialty Start Date End Date Jose Short [address] [place] [address] [address] [place], [place] [id number] PCP - General 10/15/24 documented as of this encounter
--- OUTSIDE RECORDS SUMMARY | 2024-10-15 10:07 | XMS_ITS | Clinical Summary ---
Author Organization [facility] Administrative Offices Address [address] [place] [address] Care Team Providers Care Supervisor Finishing Room Name Role Phone Unavailable Primary Care Provider Unavailabl e Social History Tobacco Use Types Packs/Day Years Used Date Smoking Tobacco: Never Assessed Sex and Gender Information Value Date Recorded Sex Assigned at Not on file Legal Sex Male 8:24 PM CDT Gender Identity Not on file Sexual Orientation Not on file Plan of Treatment Health Maintenance Due Date Last Done Comments DTAP/TDAP/TD VACCINES (1 - Tdap) 1959 PNEUMOCOCCAL VACCINE 50+ YEARS (1 of 1 - PCV) 05/15/18 92 ZOSTER VACCINE (1 of 2) 05/16/1991 RSV VACCINE (60+ or ) (1 - 1-dose 75+ series) 2016 INFLUENZA VACCINE (#1) [address] [place] [id number]
--- OUTSIDE RECORDS SUMMARY | 2024-10-15 10:07 | XMS_ITS | Clinical Summary ---
Author Organization [facility] Address [address] [place] [address] Care Team Providers Care Parent Educator Name Role Phone Jose Short Primary Care Provider [phone] Allergies No known active allergies Medications pravastatin (PRAVACHOL) 40 MG tablet Take 1 tablet by mouth 1 (one) time each day Active omeprazole (PriLOSEC) [address] capsule Take 1 capsule by mouth 1 (one) time each day 1 Active levothyroxine (SYNTHROID, LEVOTHROID) 100 MCG tablet Take 100 mcg by mouth 1 (one) time each day 1 Active hydrALAZINE 50 MG tablet Take by mouth 3 times a day 150 MG AM & PM and 100MG NOON 1 Active carvedilol (COREG) 6.25 MG tablet Take 1 tablet by mouth in the morning and 1 tablet in the evening. 1 Active apixaban (ELIQUIS) 5 MG tablet Take 5 mg by mouth in the morning and 5 mg in the evening. 1 Active amiodarone (PACERONE) 200 MG tablet Take 1 tablet by mouth 1 (one) time each day 1 Active MULTIPLE VITAMINS-MINERAL S ER PO Take 1 tablet by mouth 1 (one) time each day Active tamsulosin (FLOMAX) 0.4 MG 24 hr capsule Take 1 capsule by mouth 1 (one) time each day 3 Active galantamine (RAZADYNE) 8 MG tablet Take 8 mg by mouth 1 (one) time each day 3 Active memantine (NAMENDA) 10 MG tablet Take 10 mg by mouth in the morning and 10 mg in the evening. 3 Active potassium chloride (MICRO-K) 8 MEQ CR capsule TAKE 1 CAPSULE BY MOUTH ONCE DAILY NEEDED ALONG WITH LASIX FOR 30 DAYS 4 Active furosemide (LASIX) 40 MG tabletIndication s:Essential (primary) hypertension Take 0.5 tablets (20 mg total) by mouth 1 (one) time each day NEEDED 4 Active Additional Information Patient not taking.Reported on 04/30/2024 Cholecalciferol (D3 2000 PO) Take 1 capsule by mouth 1 (one) time each day Active Active Problems Problem Noted Date Diagnosed Date Stage 3b chronic kidney disease 06/14/2021 Essential (primary) hypertension 06/14/2021 Encounters Date Type Department Care Team Description 10/15/2024 Telephone [facility] [address] [place] [address] Amirah Valerio 09/04/2024 Telephone [facility], [facility] [address] [place] [address] Wendy Harrison MD from Last 3 Months Family History Medical History Relation Comments Heart disease Father Dementia Mother Heart disease Sibling Hypertension Sibling Relation Status Comments Father Mother Sibling Alive Social History Tobacco Use Types Packs/Day Years Used Date Smoking Tobacco: Never Smokeless Tobacco: Never Tobacco Cessation:Counseling Given: Not Answered Alcohol Use Standard Drinks/Week Comments Not Currently 0 (1 standard drink = 0.6 oz pur e alcohol) Sex and Gender Information Value Date Recorded Sex Assigned at Not on file Legal Sex Male 11:04 AM EST Gender Identity Not on file Sexual Orientation Not on file Last Filed Vital Signs Vital Sign Reading Time Taken Comments Blood Pressure 160/84 04/30/2024 1:30 PM RESIN MIXER Pulse 47 04/30/2024 1:30 PM RESIN MIXER Temperature - - Respiratory Rate - - Oxygen Saturation 99% 04/30/2024 1:30 PM RESIN MIXER Inhaled Oxygen Concentration - - Weight 75 kg (165 lb 6.4 oz) 04/30/2024 1:30 PM RESIN MIXER Height 170.2 cm (5' 7 ) 04/30/2024 1:30 PM RESIN MIXER Body Mass Index 25.91 04/30/2024 1:30 PM RESIN MIXER Plan of Treatment Upcoming Encounters Date Type Department Care Team (Late st Contact Info) Description 11/04/2024 2:30 PM CDT Office Visit [facility] [address] [place] [address] Juani Grant NP [address] [place] [address] Health Maintenance Due Date Last Done Comments Influenza Vaccine (#1) 2024 1, 11/26/2018 Pneumococcal Vaccine: 50+ Years Completed 03/13/2018, 03/03/2015 Hepatitis B Vaccine Aged Out No longe r eligible based on patient's age to complete this topic Insurance UHC Medicare Care Teams Parent Educator Relationship Specialty Start Date End Date Jose Short [address] [place], [place] [address] PCP - General 10/15/24
[2024-10-15 10:15] VITALS: BP 142/70; PULSE 89; RESP 18; TEMP 36.8; O2SAT 95
--- NOTE | 2024-10-15 10:46 | ED_ITS ---
HPI - Recheck/Abnormal Lab/Rx 2 General: Chief Complaint: Recheck/Abnormal Lab/Rx Stated Complaint: blood number issues, Kindey issues Time Seen by Provider: 10/15/24 10:21 Source: patient Mode of arrival: ambulatory Limitations: no limitations History of Present Illness: 84-year-old male has a history of Alzhei renny's along with chronic kidney disease states he had labs drawn 2 days ago and was told that his creatinine had elevated. The member is here states has had no vomiting no diarrhea no complaints. She states that his food and water intake has been less though. He denies any pain anywhere. Related Data Home Medications ?Medication ?Instructions ?Recorded ?Confirmed multivitamin 1 tab PO DAILY 12/13/2009/26 loratadine 10 mg tablet 10 mg PO DAILY 01/12/2109/26 Previous Rx's ?Medication ?Instructions ?Recorded [facility] brace #1 ea 06/20/22 amiodarone 200 mg tablet 200 mg PO DAILY #90 tabs 10/19 hydralazine 50 mg tablet 150 mg (3 x 50 mg) PO BID #2 40 tabs 02/28/24 carvedilol 12.5 mg tablet 12.5 mg PO BID #180 tabs 07/20 levothyroxine 100 mcg tablet 100 mcg PO DAILY Thyroid med #90 07/07/24 tabs omeprazole 40 mg capsule,delayed 40 mg PO DAILY PRN Ac id reflux #30 07/07/24 release caps tamsulosin 0.4 mg capsule 0.4 mg PO QDAY prostate #90 caps 07/07/24 tolterodine 4 mg capsule,extended 4 mg PO DAILY #90 ca ps 07/07/24 release 24 hr (Detrol LA) hydroxyzine HCl 25 mg tablet 25 mg PO TID PRN itching #60 tabs 07/17/24 furosemide 20 mg tablet See Rx Instructions .Route 0 09/08/24 Held on 10/15/24. .COMPLEX #30 tabs Instructions: Home Medication placed on hold at Doctor's office potassium chloride 8 mEq See Rx Instructions .Route 0 09/08/24 capsule,extended release .COMPLEX #30 caps apixaban 2.5 mg tablet 2.5 mg PO BID #180 tabs 08/26 07/20 memantine 10 mg tablet 10 mg PO BID 90 days #180 ta bs 10/13/24 Allergies Allergy/AdvReac Type Severity Reaction Status Date / Time No Known Allergies Allergy Verified 10/13/24 14:54 Review of Systems 2 Const: Denies: fever(s), chills, body aches or change in appetite Eyes: Denies: blurry vision or eye discomfort ENMT: Denies: throat pain or dental pain Card: Denies: chest pain Resp: Denies: dyspnea GI: Denies: abdominal pain, nausea, vomiting or diarrhea : Denies: dysuria Musc: Denies: neck pain or back pain Skin/Breast: Denies: rash Neuro: Denies: headache(s) PFSH ED 2 PFSH: Medical History Anemia BPH loc w urin obs/LUTS Secondary hyperparathyroidism (of renal origin) Benign hypertension with stage 3b chronic kidney disease [facility], Dr. 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 Coley 09/20/2023 neurologist Hypertension Hyperlipidemia History of prostate cancer Onset 2006 with surgery on one side Lymphocytic colitis A-fib Neuropathic pain Bilateral lower legs and feet Gout Surgical History Hx of prostate biopsy History of back surgery Hx of hernia repair Hx of cholecystectomy Family History Brother CAD (coronary artery disease) later onset Father , at age 72 CAD (coronary artery disease) [place] 72 Mother , in her 50's Suicide Social History Smoking and tobacco/nicotine status: never used tobacco/nicotine Alcohol intake: never Substance/Drug Use: never Marital status: Current occupational status: retired Physical Exam 2 Const: COMMON NORMALS: no acute distress, patient oriented x3 and healthy appearing HENMT: COMMON NORMALS: normocephalic and atraumatic HEAD & SCALP: n ormocephalic and atraumatic Eye: COMMON NORMALS: conjunctivae normal CONJUNCTIVA: Yes conjunctivae normal Neck/C-Spine: COMMON NORMALS: full ROM and supple Chest: COMMONS NORMALS: normal inspection of the chest Resp: COMMON NORMALS: normal respiratory effort, No retractions, No use of accessory muscles and clear to auscultation bilaterally AUSCULTATION: clear to auscultation bilaterally Cardio: COMMON NORMALS: regular rate, regular rhythm and No murmurs present (Cardio) RATE: regular rate RHYTHM: regular rhythm GI: COMMON NORMALS: Normal to inspection, nondistended, normoactive bowel sounds present, Soft to palpation, non-tender and no masses PALPATION: Yes Soft to palpation Extremity: COMMON NORMALS: normal to inspection and full ROM Neuro: COMMON NORMALS: patient oriented x3, moves all extremities and no focal motor deficits Psych: COMMON NORMALS: mental status grossly normal, Normal thought process present and cooperative THOUGHT PROCESS: Normal thought process present Skin: COMMON NORMALS: no rashes or lesions noted and no wounds GENERAL SKIN EXAM: no rashes or lesions noted Course 2 Vital Signs: Vital signs: Vital Signs Temperature 98.3 F 10/15/24 10:15 Pulse Rate 51 L 10/15/24 12:31 Respiratory Rate 16 10/15/24 12:31 Blood Pressure 176/65 10/15/24 12:31 Pulse Oximetry 100 10/15/24 12:31 Oxygen Delivery Me thod Room Air 10/15/24 12:31 MDM - Recheck/Abnormal Lab/Rx Medical Decision Making Patient presents here with elevated creatinine he does have chronic kidney disease his creatinine is improved from his blood draw on the 18 still making urine potassium here is normal he stable for discharge follow-up with PCP return if worsening. Medical Records I reviewed the patient's medical records. Lab Data I reviewed the patient's lab results. 10/15/24 11:13 10/15/24 11:13 Radiology Impressions Chest X-Ray 10/15/24 11:26 IMPRESSION: 1. No acute findings. 2. Cardiac enlargement. Laboratory Results WBC 12.29 10^3/uL (3.29-11.43) H 10/15/24 11:13 RBC 3.25 10^6/uL (3.85-5.65) L 10/15/24 11:13 Hgb 10.20 g/dL (11.27-16.99) L 10/15/24 11:13 Hct 30.9 % (37-53) L 10/15/24 11:13 MCV 95.1 fl (82-101) 10/15/24 11:13 MCH 31.4 pg (27-33) 10/15/24 11:13 MCHC 33.0 g/dL (30-55) 10/15/24 11:13 RDW 13.2 % (12.1-15.1) 10/15/24 11:13 Plt Count 223 10^3/cmm (157-399) 10/15/24 11:13 MPV 10.1 fL (7.4-10.4) 10/15/24 11:13 Neut % (Auto) 73.0 % 10/15/24 11:13 Lymph % (Auto) 17.7 % 10/15/24 11:13 [place] % (Auto) 7.1 % 10/15/24 11:13 Eos % (Auto) 1.4 % 10/15/24 11:13 Baso % (Auto) 0.4 % 10/15/24 11:13 Neut # (Auto) 8.97 10^3/uL (1.8-7.7) H 10/15/24 11:13 Lymph # (Auto) 2.2 10^3/uL (0.8-4.8) 10/15/24 11:13 [place] # (Auto) 0.9 10^3/uL (0.2-0.9) 10/15/24 11:13 Eos # (Auto) 0.2 10^3/uL (0.0-0.8) 10/15/24 11:13 Baso # (Auto) 0.1 10^3/uL (0.0-0.1) 10/15/24 11:13 Nucleated RBC % (auto) 0 % 10/15/24 11:13 Nucleated RBCs # 0.0 /100WBC 10/15/24 11:13 Sodium 138 mmol/L (136-145) 10/15/24 11:13 Potassium 3.2 mmol/L (3.5-5.1) L 10/15/24 11:13 Chloride 101 mmol/L (98-107) 10/15/24 11:13 Carbon Dioxide 23 mmol/L (22-29) 10/15/24 11:13 Anion Gap 17.2 (5-19) 10/15/24 11:13 BUN 49 mg/dL (8-23) H 10/15/24 11:13 Creatinine 3.9 mg/dL (0.7-1.2) H 10/15/24 11:13 GFR Calculation Not Reportable 10/15/24 11:13 Glucose 91 mg/dL (65-115) 10/15/24 11:13 Calculated Osmolality 299 mOsm/kg (285-295) H 10/15/24 11:13 Calcium 8.5 mg/dL (8.5-10.5) 10/15/24 11:13 Total Bilirubin 0.6 mg/dL (0.15-1.2) 10/15/24 11:13 AST 34 U/L (0-40) 10/15/24 11:13 ALT 32 U/L (0-41) 10/15/24 11:13 Alkaline Phosphatase 70 U/L (40-130) 10/15/24 11:13 Total Protein 6.0 g/dL (6.6-8.7) L 10/15/24 11:13 Albumin 3.5 g/dL (3.5-5.2) 10/15/24 11:13 Globulin 2.5 g/dL (1.3-4.6) 10/15/24 11:13 All radiology interpretation(s) finalized by discharge EKG Data EKG 1: I personally reviewed and interpreted this EKG as follows: EKG interpretation date: 10/15/24 EKG interpretation time: 10:51 Interpretation: afib slow rvr hr [address] elevation qrs 102 qtc 444 Discharge Plan Discharge Patient Disposition: Home Clinical Impression: Chronic kidney disease Condition: Stable Prescriptions: No Action multivitamin Tablet 1 tab PO DAILY loratadine 10 mg tablet 10 mg PO DAILY (DME) [facility] brace See Rx Instructions .Route .MEDSUPPLY Qty: 1 0RF Rx Instructions: As directed carvedilol 12.5 mg tablet 12.5 mg PO BID Qty: 180 3RF Rx Instructions: must administer with a meal/food omeprazole 40 mg capsule,delayed release(DR/EC) 40 mg PO DAILY PRN (Reason: Acid reflux) Qty: 30 3RF levothyroxine 100 mcg tablet 100 mcg PO DAILY Qty: 90 1RF tolterodine [Detrol LA] 4 mg capsule,extended release 24hr 4 mg PO DAILY Qty: 90 1RF tamsulosin 0.4 mg capsule 0.4 mg PO QDAY Qty: 90 1RF amiodarone 200 mg tablet 200 mg PO DAILY Qty: 90 3RF hydralazine 50 mg tablet 150 mg PO BID Qty: 240 3RF hydroxyzine HCl 25 mg tablet 25 mg PO TID PRN (Reason: itching) Qty: 60 1RF furosemide 20 mg tablet See Rx Instructions .ROUTE .COMPLEX Qty: 30 3RF Dose Instruction: TAKE 1 TABLET BY MOUTH ONCE DAILY NEEDED FOR EDEMA Rx Instructions: TAKE 1 TABLET BY MOUTH ONCE DAILY NEEDED FOR EDEMA potassium chloride 8 mEq capsule, extended release See Rx Instructions .ROUTE .COMPLEX Qty: 30 3RF Dose Instruction: TAKE 1 CAPSULE BY MOUTH ONCE DAILY NEEDED ALONG WITH LASIX FOR 30 DAYS Rx Instructions: TAKE 1 CAPSULE BY MOUTH ONCE DAILY NEEDED ALONG WITH LASIX FOR 30 DAYS apixaban 2.5 mg tablet 2.5 mg PO BID Qty: 180 3RF memantine 10 mg tablet 10 mg PO BID 90 Days Qty: 180 3RF Discharge Orders: Discharge ED (Routine); Ordered 10/15/24 Ordered By: Evelio Vitale Referrals: Jose Short MD [Primary Care Provider, Family Practice] - 4-7 days Discharge Diet: Advance as tolerated Discharge Activity: Resume usual activity Patient Instructions: Chronic Kidney Disease (ED) Print Language: Yoruba Coding Level of Care Code ED Production Quality Analyst for Nishi Singh
[2024-10-15 10:58] VITALS: BP 178/79; PULSE 44; RESP 16; O2SAT 95
[2024-10-15 11:21] LABS: Hematocrit 30.9 % (37-53); Hemoglobin 10.20 g/dL (11.27-16.99); Mean Corpuscular HGB Conc 33.0 g/dL (30-55); Mean Corpuscular Hemoglobin 31.4 pg (27-33); Mean Corpuscular Volume 95.1 fl (82-101); Nucleated Red Blood Cells % 0 %; Platelet Count 223 10^3/cmm (157-399); Red Blood Count 3.25 10^6/uL (3.85-5.65); White Blood Count 12.29 10^3/uL (3.29-11.43)
--- NOTE | 2024-10-15 11:26 | XRR_ITS ---
PROCEDURE INFORMATION: Exam: XR Chest Exam date and time: 10/15/2024 11:29 AM Age: 84 years old Clinical indication: Other: HTN TECHNIQUE: Imaging protocol: Radiologic exam of the chest. Views: 1 view. COMPARISON: No relevant prior studies available. FINDINGS: Lungs: There is no consolidation. Pleural spaces: There is no pleural effusion or pneumothorax. Heart/Mediastinum: There is mild enlargement of the cardiac silhouette. Bones/joints: Bones are unremarkable. XR/XR chest 1V portable [id number] IMPRESSION: 1. No acute findings. 2. Cardiac enlargement.
[2024-10-15 11:41] LABS: Alanine Aminotransferase 32 U/L (0-41); Albumin Level 3.5 g/dL (3.5-5.2); Alkaline Phosphatase 70 U/L (40-130); Anion Gap 17.2 (5-19); Aspartate Amino Transferase 34 U/L (0-40); Blood Urea Nitrogen 49 mg/dL (8-23); Calcium 8.5 mg/dL (8.5-10.5); Carbon Dioxide 23 mmol/L (22-29); Chloride 101 mmol/L (98-107); Globulin 2.5 g/dL (1.3-4.6); Glucose 91 mg/dL (65-115); Osmolality Calculated 299 mOsm/kg (285-295); Potassium 3.2 mmol/L (3.5-5.1); Sodium 138 mmol/L (136-145); Total Protein 6.0 g/dL (6.6-8.7)
[2024-10-15 11:52] VITALS: BP 166/71; PULSE 48; RESP 16; O2SAT 99
[2024-10-15 12:02] VITALS: BP 176/65; PULSE 49; RESP 16; O2SAT 100
[2024-10-15 12:31] VITALS: BP 176/65; PULSE 51; RESP 16; O2SAT 100
[2024-10-15 12:57] VITALS: BP 110/62; PULSE 50; RESP 16; O2SAT 100
== END 2024-10-15 12:58 | disposition home or self-care (01) ==
PROVIDERS: Emergency Provider Emergency Medicine; PCP Family Medicine
DX: I12.9 Hypertensive chronic kidney disease with stage 1 through stage 4 chronic kidney disease, or unspecified chronic kidney disease (principal); N18.32 Chronic kidney disease, stage 3b; Z85.46 Personal history of malignant neoplasm of prostate; E78.5 Hyperlipidemia, unspecified
CPT/HCPCS: 36415; 71045; 80053; 85025; 93005; 99285; J7030

== ENCOUNTER 2024-10-22 11:38 | Outpatient (CLI) | payer MEDICARE, SELFPAY ==
[2024-10-22 12:21] LABS: Alanine Aminotransferase 47 U/L (0-41); Albumin Level 3.2 g/dL (3.5-5.2); Alkaline Phosphatase 73 U/L (40-130); Anion Gap 17.5 (5-19); Aspartate Amino Transferase 48 U/L (0-40); Blood Urea Nitrogen 31 mg/dL (8-23); Calcium 8.5 mg/dL (8.5-10.5); Carbon Dioxide 21 mmol/L (22-29); Chloride 102 mmol/L (98-107); Globulin 2.9 g/dL (1.3-4.6); Glucose 96 mg/dL (65-115); Osmolality Calculated 290 mOsm/kg (285-295); Potassium 3.5 mmol/L (3.5-5.1); Sodium 137 mmol/L (136-145); Total Protein 6.1 g/dL (6.6-8.7)
== END 2024-10-22 11:39 | disposition home or self-care (01) ==
PROVIDERS: PCP Family Medicine; Visit Provider Family Medicine
DX: M79.89 Other specified soft tissue disorders (principal)
CPT/HCPCS: 36415; 80053